=== PATIENT | male | born 1970 | race Caucasian/White ===

== ENCOUNTER 2024-10-29 14:23 | Emergency (ER) | payer OTHER ==
[~2024-10-29] VITALS: Ht 170.2 cm; Wt 79.8 kg
[2024-10-29] MEDS ORDERED: VENTOLIN HFA18 GM INH (16:41)
[2024-10-29] MEDS ORDERED: ADVAIR 250-501 EACH INH (16:41)
[2024-10-29] MEDS ORDERED: ALPRAZOLAM0.5 MG PO (16:42)
[2024-10-29] MEDS ORDERED: HYDROCODONE/ACETA 7.5/325 TAB PO ONE (17:15)
[2024-10-29 19:25] VITALS: BP 132/84
== END 2024-10-29 19:25 | disposition home or self-care (01) ==
LOC: ED 14:23
DX: S06.0X0A Concussion without loss of consciousness, initial encounter (principal); S01.21XA Laceration without foreign body of nose, initial encounter; S20.219A Contusion of unspecified front wall of thorax, initial encounter; J45.909 Unspecified asthma, uncomplicated; Z88.5 Allergy status to narcotic agent; Z79.51 Long term (current) use of inhaled steroids; Z79.899 Other long term (current) drug therapy; V00.321A Fall from snow-skis, initial encounter; Y93.23 Activity, snow (alpine) (downhill) skiing, snowboarding, sledding, tobogganing and snow tubing
CPT/HCPCS: 12013; 70450; 70486; 71250; 99283-25; A9270